=== PATIENT | male | born 1990 | race African-American/Black ===

== ENCOUNTER 2021-01-29 09:27 | Emergency (ER) | payer OTHER, SELFPAY ==
[2021-01-29 09:40] VITALS: BP 146/76; PULSE 83; RESP 16; TEMP 36.3; O2SAT 100
--- NOTE | 2021-01-29 10:01 | ED.NAVMDI ---
HPI - Nausea/Vomiting/Diarrhea General Chief complaint: Nausea/Vomiting/Diarrhea Stated complaint: Abdominal Pain Time Seen by Provider: 01/29/21 10:00 Source: patient and RN notes reviewed Mode of arrival: ambulatory Limitations: no limitations History of Present Illness HPI Narrative: 30-year-old male presents with concern for diarrhea. Reports after he ate q. dopa yesterday he began having diarrhea last night. Reports 3 diarrhea stools since 2 AM. He denies nausea, vomiting, body aches, chills, sweats, fever, cough, shortness of breath, nasal congestion, rhinorrhea. Denies abdominal pain. He denies intervention. Reports his girlfriend who ate the same food is him also has diarrhea. MD elicited complaint: diarrhea Related Data Home Medications Medication Instructions Recorded Confirmed No Home Medications 01/29/21 01/29/21 Allergies Allergy/AdvReac Type Severity Reaction Status Date / Time peanut Allergy Swelling Verified 01/29/21 09:49 Review of Systems Review of Systems: Narrative: CONSTITUTIONAL: Denies malaise, chills, sweats, or fever. ENT: Denies rhinorrhea, congestion, sinus pain, otalgia or sore throat. CARDIOVASCULAR: Denies chest pain, palpitations, or edema. RESPIRATORY: Denies cough or dyspnea. GASTROINTESTINAL: Denies abdominal pain, nausea, vomiting, bloody, or mucous stools. Reports diarrhea GENITOURINARY: Denies dysuria or hematuria. SKIN: Denies rash or itching. MUSCULOSKELETAL: Denies myalgia. NEUROLOGIC: Denies headache. All systems reviewed & are unremarkable except as noted in HPI and below PMFSH Social History Social History Gender identity (if verbalized by the patient): Male Comments At time of signature, agree with nursing past medical, surgical, social and family history. There is no relevant family history pertinent to the presenting complaint Exam Narrative: Exam Narrative: GENERAL: Well-appearing, well-nourished, and in no acute distress. HEAD: Normocephalic. EYES: PERRLA, conjunctivae clear. NECK: Supple. No lymphadenopathy CHEST: Clear to auscultation. No respiratory distress. HEART: Regular rate and rhythm. ABDOMEN: Soft, nontender upon palpation, nondistended, normal active bowel sounds, no palpable or pulsatile masses, no guarding. No CVA tenderness SKIN: Warm, dry, no rash. NEURO: Alert and oriented x3. PSYCH: Normal mood and affect Course Course Emergency Course: Patient is aware of diagnosis, understands and agrees to treatment plan. Anticipatory guidance given. Patient agrees to follow-up as directed and is aware of reasons to seek care at the emergency department. Portions of this record may have been created with voice recognition software Vital Signs Vital signs: Vital Signs Temperature 97.3 F L 01/29/21 09:40 Pulse Rate 83 01/29/21 09:40 Respiratory Rate 16 01/29/21 09:40 Blood Pressure 146/76 H 01/29/21 09:40 Pulse Oximetry 100 01/29/21 09:40 Temperature 97.3 F L 01/29/21 09:40 Pulse Rate 83 01/29/21 09:40 Respiratory Rate 16 01/29/21 09:40 Blood Pressure 146/76 H 01/29/21 09:40 Pulse Oximetry 100 01/29/21 09:40 Reviewed. MDM - Nausea/Vomiting/Diarrhea MDM Narrative Medical decision making narrative: Exam findings show no acute concerns or changes; patient is non-toxic appearing and is in no distress. Patient exhibiting no systemic symptoms, no Covid exposure known. Patient is appropriate for outpatient treatment and follow-up. Differential Diagnosis Differential diagnosis: Likely traveler's diarrhea, food poisoning, gastroenteritis and dehydration Critical Care Time Critical Care Time Critical Care Time: No Discharge Plan Discharge Clinical Impression: Diarrhea Qualifiers: Diarrhea type: unspecified type Qualified Code(s): R19.7 - Diarrhea, unspecified Patient Disposition: Home, Self-Care Condition: Stable Instructions: Acute Diarrhea (ED) Additional Instructions: Stay hydrated. Take s
== END 2021-01-29 10:20 | disposition home or self-care (01) ==
PROVIDERS: Emergency Provider Nurse Practitioner
DX: R19.7 Diarrhea, unspecified (principal)
CPT/HCPCS: 99211; G0463